=== PATIENT | male | born 1985 | race African-American/Black ===

== ENCOUNTER 2020-12-17 14:33 | Outpatient (CLI) | payer OTHER ==
[2020-12-17 15:23] VITALS: BP 124/74
--- NOTE | 2020-12-17 15:23 | SLEEP CARE CONSULTATION ---
Information from patient questionnaire entered by Valentina Kaur. I have reviewed and concur with the information entered by Valentina Kaur. This document represents the service I personally performed and the decisions made by me, Jo Montiel ARNP. History of Present Illness Service Date and Time: 12/17/2020 1433 Reason for Visit: New patient Chief Complaint: reports: Insomnia, Unrefreshed sleep, Snoring, Excessive daytime sleepiness, Observed pauses in breathing, Fatigue, Frequent awakenings at night, Other (Headaches in morning) Date of Onset: several years/headaches several months Usual bedtime: 2200 Time it takes to fall asleep: 1-3 hours Snores at night: Yes Observed to quit breathing while asleep: Yes Sleeps alone due to snoring: Yes (sometimes) Number of times waking at night: 1-3 Reasons for waking at night: reports: Gasping for air, Pain, Bathroom Toss, Turn, or Twitch while sleeping: Yes Recalls having dreams: Yes (sometimes) Usually gets out of bed at: 0500; 1000 on weekends Feels refreshed in the morning: No Morning headache: Yes (2-3 days a weeks, last 1 hr, takes meds) Sleepy or fatigued during the day: Yes Ever fallen asleep while driving: Yes (drowsy driving, no accidents) Takes day naps: Yes (3-4 times a week, 45 mins) Dreams during day naps: Yes Prior sleep studies: No Additional HPI information: I had the pleasure of seeing ARGELIA DOE today regarding the possibility of him having a sleep disorder. His current complaints are excessive daytime sleepiness, frequent night awakenings, fatigue, observed pauses in breathing, snoring and unrefreshed sleep. He states that he has snored for a long time but in the last month, his has told him that he stops breathing when asleep. He has woken up gasping for air. He states he often wakes up feeling tired instead of rested. He states for several months now he is waking up frequently with headaches that last about an hour. He normally takes meloxicam and gabapentin in the morning for his knee pain. He states that his father has sleep apnea but is not treated. - Parasomnia Symptoms Ever been unable to move upon waking from sleep: No Walks in sleep: No Talks in sleep: Yes Ever acted out dreams in sleep: Yes (occasionally) Ever felt weak in the knees when startled or emotional: No Bothered by creepy, crawly, restless sensations in legs: No Problems with memory or concentration: Yes (both, depends on tiredness; memory probably no) Subjective Initial [place] Sleepiness Scale score: 18 (in 2020) Past Medical History Past Medical History: reports: Claustrophobia, Anxiety, Other (chronic pain in left knee (tendonitis, cyst, bursitis)) Social History The patient's occupation is a [employer]. Patient is and lives in [place]. Have you smoked in the past 12 months: No Alcohol use: Yes Alcohol amount and frequency: 2-3 drinks every 2-3 weeks Caffeine use: No Family History Family history of sleep disordered breathing: Yes Family Hx Sleep Apnea: Mother: Snoring, Father: Snoring, Sleep apnea - Untreated, Sibling: Snoring Allergies and Home Medications Drug allergies reviewed: Yes (NKDA) Home medication list reviewed: Yes Allergy and home medication list: Gabapentin Meloxicam 15 mg daily Propanolol for anxiety Review of Systems Cardiovascular: reports: irregular heart rate or pulse, leg or foot swelling. denies: high blood pressure Gastrointestinal: denies: heartburn Neurological: reports: headaches Psychiatric: reports: anxiety, claustrophobia, other (panic disorder) Ear/Nose/Throat: reports: dry mouth/throat. denies: injury to nose, tonsillectomy, wisdom teeth removed Endocrine: reports: too hot or cold (*cold) Musculoskeletal: reports: joint pain (*joint pain), joint swelling, muscle pain or cramping (*muscle pain), mobility problems Physical Exam Blood Pressure: 124/74 Cuff size: wrist Heart Rate: 76 O2 Saturation: 100 Height: 5 ft 11 in Weight: 214 lb Body Mass Index: 29.8 BMI Classification: Overweight Neck circumference: 15.75 (inches) Mouth and throat: narrow oropharynx Soft palate: long Hard palate: normal Uvula: edematous Uvula visualization: 25% Mallampati Class III Tongue: enlarged in size with teeth barrera on lateral edges Tonsils: 1+ Neck: normal w/o lymphadenopathy or thyromegaly Heart: regular rate and rhythm Lungs: clear bilaterally Impression and Plan 1. Suspected Obstructive Sleep Apnea-Hypopnea Syndrome, as suggested by a history of loud and irregular snoring, observed cessation of breath while asleep, gasping or choking in sleep, morning headache, frequent awakening during the night, unrefreshed sleep, cognitive impairment, and excessive daytime sleepiness. Narrow oropharynx and obesity are common predisposing factors for obstructive sleep apnea-hypopnea syndrome. I recommend proceeding to polysomnography to confirm the diagnosis and to assess severity. If the patient has significant sleep disordered breathing, a manual CPAP titration study will also be performed to find the optimal treatment pressure. I informed the patient of what the sleep studies involve and after some discussion, obtained agreement to proceed. The pathophysiology of obstructive sleep apnea-hypopnea syndrome was discussed with the patient and health risks of cardiovascular and cerebrovascular disease if not treated. AAS brochure for obstructive sleep apnea-hypopnea syndrome given and reviewed. Risks of drowsy driving discussed in detail and patient advised to avoid long distance driving and to extractor puller at the first sign of drowsiness. Patient agreed to plan. * Schedule polysomnography +- manual CPAP titration study and return in 1-2 weeks after the study to discuss result and initiate therapy. * Avoid long distance driving or driving when feeling sleepy. * Avoid alcohol, sedative and muscle relaxant around bedtime. * Attempt to lose weight. * Review instructions provided by trained office staff on how to prepare for the sleep study. * Return for follow-up after sleep study completed. Counseling Topics: Weight loss health impact Visit Type: In Office Time Spent with Patient (minutes): 31 Provider Statement: I spent 100% of the Face to Face Visit with the patient with greater than 50% spent counseling the patient and coordination of care.
== END 2020-12-17 14:34 | disposition home or self-care (01) ==
LOC: SC 14:33
PROVIDERS: ATTEND Nurse Practitioner Family
DX: R06.83 Snoring (principal); R06.81 Apnea, not elsewhere classified; G47.8 Other sleep disorders; R51.9 Headache, unspecified; G47.10 Hypersomnia, unspecified; R41.89 Other symptoms and signs involving cognitive functions and awareness
CPT/HCPCS: 99203; 99212

== ENCOUNTER 2020-12-24 09:38 | Outpatient (CLI) | payer OTHER | END 2020-12-24 09:39 | disposition home or self-care (01) | LOC: SC 09:38 | PROVIDERS: ATTEND Nurse Practitioner Family | DX: R06.83 Snoring (principal); R51.9 Headache, unspecified; R06.81 Apnea, not elsewhere classified; G47.8 Other sleep disorders; G47.10 Hypersomnia, unspecified; R41.89 Other symptoms and signs involving cognitive functions and awareness | CPT/HCPCS: 95806 ==

== ENCOUNTER 2021-01-06 08:19 | Outpatient (CLI) | payer OTHER ==
[2021-01-06 09:00] VITALS: BP 119/81
--- NOTE | 2021-01-06 09:00 | SLEEP CARE CONSULTATION ---
Information from patient questionnaire entered by Ese Moore MA. I have reviewed and concur with the information entered by Ese Moore MA. This document represents the service I personally performed and the decisions made by Dinesh barrett Caren J, ARNP. History of Present Illness Service Date and Time: 01/06/2021 0819 Initial [place] Sleepiness Scale score: 18 (in 2020) Current [place] Sleepiness Scale score: 19 (2020) Additional HPI information: ARGELIA DOE returns for follow up and results of the recently performed home sleep study. The patient was informed of the following findings: No significant sleep disordered breathing with an average AHI of 2.4 and a doug oxygen saturation of 85%. I explained the pathophysiology behind obstructive sleep apnea. Patient does not have sleep apnea and was advised how weight gain could increase the risk of developing sleep apnea in the future. Patient counseled not drink alcohol less than 4 hours before bedtime as it can increase snoring and apnea. Patient was cautioned about risks of drowsy driving until sleepiness symptoms resolve. Sleep Study - Results Type of Sleep Study: Home sleep study Prior sleep studies: No Year and Where: 12/16 [facility] Polysomnography/Home Sleep Study results: Physician Impression: The quality of the study is good. The length of the study is adequate (> 240 minutes). Please also see the tabulated and graphic data. 1. No significant sleep disordered breathing, with an AHI of 2.4/hr and doug SaO2 of 85%. During the study, the patient had 2 apneas (2 obstructive, 0 central, 0 mixed) and 13 hypopneas. The longest episode lasted 104.0 seconds. The few respiratory events occurred only during supine sleep (supine AHI was 3.0 and non-supine, 0.00). 2. Hypoxemia (ICD-10 R09.02), minimal, with the lowest oxygen saturation of 85 % and 0.9 minutes with SaO2 under 90%. Baseline oxygen saturation was normal (Average oxygen saturation was 94%). Recommendation Allergies and Home Medications Home medication list reviewed: Yes (Cymbalta for depression) Review of Systems Review of systems same as previous: Yes (no changes) Physical Exam Vital signs obtained and entered by: Teresa MONSON Blood Pressure: 119/81 (left) Cuff size: wrist Heart Rate: 64 O2 Saturation: 98 (with mask) Height: 5 ft 11 in Weight: 211 lb (with boots) Body Mass Index: 29.4 BMI Classification: Overweight Impression and Plan Insomnia, unspecified. Insomnia is generally caused by an irregular sleep s chedule, spending too much time in bed, napping, caffiene, electronics, lack of a relaxing bedtime ritual and clock watching. Other factors can include anxiety/depression, pain, medications, and obstructive sleep apnea. First I counseled the patient on the importance of a regular sleep schedule, starting with the wake time. I explained the homestatic sleep drive and how maintaining a regular wake time will allow the patient to be tired enough to sleep 15-16 hours later. By waking at the same time, the patient will also feel more alert. Most caffeine is to be stopped after lunch as it has a 6 hour half life and reduce sleep latency and efficiency. In addition, it is important to have a relaxing ritual about 30-60 minutes before bedtime to allow the mind/body transition from an active day to sleep. Electronics should be avoided 1-2 hours before bedtime as the bright light can reduce the endogenous melatonin and the activity of the computer, tablet, cell phone etc can be alerting. TV is okay but content needs to be relaxing and the brightness dimmed. In addition, it is important to have a sleep environment conducive to sleep such as a comfortable bed, comfortable temperature and quiet. If unable to go to sleep in an estimated 20 minutes of more, it is advised to leave the bedroom and engage in a quiet activity until sleepy enough to return to bed. If unable to sleep due to things on the mind, it is recommended to write out the concerns or list to do as a release then return to a quiet activity until sleepy enough to return to bed. This is to be repeated as often as necessa ry to associate the bed with sleep and not frustration to get to sleep. AASM How to Sleep Better pamphlet and Understanding Insomnia given and reviewed. * Maintain a regular wake up time daily * Maintain a healthy weight * Avoid alcohol consumption near bedtime * The patient is cautioned about driving until sleepiness is completely resolved. * Return as needed. Counseling Topics: Weight loss health impact, Weight control Visit Type: In Office Time Spent with Patient (minutes): 20 Provider Statement: I spent 100% of the Face to Face Visit with the patient with greater than 50% spent counseling the patient and coordination of care.
== END 2021-01-06 08:20 | disposition home or self-care (01) ==
LOC: SC 08:19
PROVIDERS: ATTEND Nurse Practitioner Family
DX: G47.00 Insomnia, unspecified (principal); G47.8 Other sleep disorders; G47.10 Hypersomnia, unspecified; R06.81 Apnea, not elsewhere classified
CPT/HCPCS: 99212; 99213